=== PATIENT | female | born 1955 | race American Indian/Alaskan Native ===

== ENCOUNTER 2016-08-16 06:55 | Day surgery (SDC) | payer MEDICARE, OTHER ==
[2016-08-16] MEDS ORDERED: ECOTRIN PO ONE (08:00)
[2016-08-16] MEDS ORDERED: NACL 0.9% 500 ML 500 ML IV SCH (08:00)
[2016-08-16 08:25] LABS: Basophils % (Auto) 0.8 % (0.0-1.8); Eosinophils % (Auto) 4.9 % (0.0-4.3); Hematocrit 28.9 % (30.3-42.9); Hemoglobin 9.9 gm/dl (10.1-14.3); Mean Corpuscular HGB Conc 34 % (30-34); Platelet Count 349 K/mm3 (140-440); Red Blood Count 4.29 M/mm3 (3.65-5.03); Red Cell Distribution Width 17.2 % (13.2-15.2); White Blood Count 8.9 K/mm3 (4.5-11.0)
[2016-08-16 08:44] LABS: Mean Corpuscular Hemoglobin 23 pg (28-32); Mean Corpuscular Volume 67 fl (79-97)
[2016-08-16 08:47] LABS: INR 0.99 (0.87-1.13)
[2016-08-16 09:42] LABS: Anion Gap 18 mmol/L; BUN/Creatinine Ratio 18.18; Blood Urea Nitrogen 20 mg/dL (7-17); Calcium 8.6 mg/dL (8.4-10.2); Carbon Dioxide 25 mmol/L (22-30); Chloride 102.3 mmol/L (98-107); Glucose 107 mg/dL (65-100); Potassium 4.1 mmol/L (3.6-5.0); Sodium 141 mmol/L (137-145)
[2016-08-16] MEDS ORDERED: HEPARIN/NS 5000 UNIT/500ML(CATH LAB) 1,000 ML IR ONE (09:47)
[2016-08-16] MEDS ORDERED: CALAN ONE (09:47)
[2016-08-16] MEDS ORDERED: HEPARIN 10,000 UNITS/10 ML ONE (09:47)
[2016-08-16] MEDS ORDERED: NITROGLYCERIN SYRINGE 0 ML ONE (09:48)
[2016-08-16] MEDS ORDERED: BENADRYL ONE (11:08)
[2016-08-16] MEDS: VERSED ONE ×3 (11:26→12:00)
[2016-08-16] MEDS ORDERED: HEPARIN/NS 5000 UNIT/500ML(CATH LAB) 500 ML IR ONE (11:26)
[2016-08-16] MEDS: XYLOCAINE 2% INFILTRATI ONE ×2 (11:26→11:58)
[2016-08-16] MEDS: SUBLIMAZE ONE ×2 (11:56→12:02)
--- NOTE | 2016-08-16 12:45 | Discharge Summary ---
Short Stay Discharge Plan Activity: advance as tolerated Weight Bearing Status: Partial Weight Bearing Diet: low fat, low cholesterol, low salt Wound: keep clean and dry Special Instructions: no heavy lifting (3 days) Follow up with: YAW GUERRERO MD [Primary Care Provider] - 7 Days HAMIDA MARINO MD [Staff Physician] - 7 Days
[2016-08-16] MEDS ORDERED: CATAPRES ONE (13:00)
[2016-08-16] MEDS ORDERED: NACL 0.9% 1000 ML 1,000 ML IV SCH (13:00)
[2016-08-16] MEDS ORDERED: CATAPRES PO PRN (13:20)
[2016-08-16] MEDS ORDERED: NITROSTAT SL ONE (13:25)
[2016-08-16] MEDS: NITROSTAT SL PRN ×3 (13:30→13:40)
--- NOTE | 2016-08-16 13:43 | Operative Report ---
Operative Report Operative Report: Cardiac catheterization procedure report The patient's a 61-year-old woman who presented for an outpatient cardiac catheterization. During a routine outpatient visit, she was noted with a harsh , 3/6 systolic ejection murmur, following which an echocardiogram demonstrated a heavily calcified aortic valve with at least moderate aortic stenosis by echo criteria. She was referred for right and left heart catheterization. Procedures performed: Right left heart catheterization Coronary angiography Left ventricular angiography The patient was prepped and draped in a sterile fashion after informed consent. The right femoral artery and vein were entered using the Seldinger technique. A 6 [place] sheath was placed in the artery and an 8 [place] sheath in the vein. Right heart catheterization was performed with a [place]-Nate catheter, advanced to the pulmonary artery position. A right Yehuda catheter was advanced into the left ventricle. Cardiac output was measured using the thermodilution method. Left heart filling pressures were measured, pulmonary artery pressures were measured, following which the right heart catheter was withdrawn. The ventricle angiography was performed following which the right Yehuda catheter was pulled back across the aortic valve to record transaortic pressure gradient. Right conjunctiva was performed using the right Yehuda catheter, following which we exchanged for a #4 left Yehuda catheter for left carotid angiography. The catheters were removed, sheath removed and hemostasis achieved at the arterial site using an Angio-Seal device. Manual compression was following removal of the venous sheath. The patient was returned to the postprocedure unit in stable condition. There were no consultations. Findings: Hemodynamics The mean right atrial pressure was 15. Right ventricular pressure was 50/18. Pulmonary artery pressure was 52/35. The mean pulmonary artery wedge pressure was 20-25. Left ventricular end-diastolic pressure was 30-35. Cardiac output was 5.9 L/m. Ascending aortic pressure was 194 systolic. On pullback across the aortic valve , there was a peak to peak gradient of 25, mean gradient of 27. Aortic valve area calculated using the Gorlin equation was 1.11 cm. Coronary angiography There was mild diffuse coronary calcification chiefly involving the proximal and mid left anterior descending artery. The left main coronary artery was free of significant disease. The left anterior descending artery contained diffuse mild atherosclerosis of the proximal and midsegment, with an up to 20% luminal stenosis. The circumflex artery and its obtuse marginal branches were angiographically normal. The right coronary artery was dominant and contained mild luminal irregularities of the proximal segment. Left ventricle systolic function was at lower limits of normal, estimated ejection fraction 50-55%. Conclusion: Moderate to severe increased right and left heart filling pressures, moderate pulmonary hypertension. Mild to moderate aortic stenosis, with a mean gradient of 27, and an aortic valve area 1.1. Mild nonobstructive disease of the LAD, no significant obstructive coronary disease noted. Left ventricular size function is well preserved, ejection fraction 50-55%. Recommendation: Risk factor modification and medical therapy.
[2016-08-16] MEDS ORDERED: ULTRAM PO PRN (15:00)
[2016-08-16 16:47] VITALS: BP 150/75
== END 2016-08-16 17:05 | disposition home or self-care (01) ==
LOC: OPU 06:55
PROVIDERS: ATTEND Internal Medicine Cardiovascular Disease
DX: I25.10 Atherosclerotic heart disease of native coronary artery without angina pectoris (principal); I35.0 Nonrheumatic aortic (valve) stenosis; I27.2 Other secondary pulmonary hypertension; D64.9 Anemia, unspecified; M10.9 Gout, unspecified; J44.9 Chronic obstructive pulmonary disease, unspecified; F32.9 Major depressive disorder, single episode, unspecified; E11.9 Type 2 diabetes mellitus without complications; M19.90 Unspecified osteoarthritis, unspecified site; K21.9 Gastro-esophageal reflux disease without esophagitis; I11.0 Hypertensive heart disease with heart failure; I50.9 Heart failure, unspecified; E78.5 Hyperlipidemia, unspecified; Z86.19 Personal history of other infectious and parasitic diseases; Z90.49 Acquired absence of other specified parts of digestive tract; Z90.710 Acquired absence of both cervix and uterus; Z88.8 Allergy status to other drugs, medicaments and biological substances; Z88.1 Allergy status to other antibiotic agents; Z79.899 Other long term (current) drug therapy; Z79.82 Long term (current) use of aspirin; Z79.4 Long term (current) use of insulin; Z82.49 Family history of ischemic heart disease and other diseases of the circulatory system; Z83.3 Family history of diabetes mellitus; Z83.49 Family history of other endocrine, nutritional and metabolic diseases
CPT/HCPCS: 36415; 80048; 82962; 85025; 85610; 85730; 93005; 93010; 93460; C1760; C1769; C1894; J1200; J1644; J2250; J2930; J3010; J7040; Q9967

== ENCOUNTER 2021-06-29 06:45 | Day surgery (SDC) | payer MEDICARE, OTHER ==
[2021-06-29] MEDS ORDERED: ASPIRIN EC 325 MG TAB PO NR (07:17)
[2021-06-29 07:49] LABS: Basophils # (Auto) 0.1 K/mm3 (0.0-0.1); Basophils % (Auto) 0.6 % (0.0-1.8); Eosinophils # (Auto) 0.3 K/mm3 (0.0-0.4); Eosinophils % (Auto) 3.5 % (0.0-4.3); Hemoglobin 11.2 gm/dl (10.1-14.3); Lymphocytes # (Auto) 3.9 K/mm3 (1.2-5.4); Lymphocytes % (Auto) 46.1 % (13.4-35.0); Mean Corpuscular HGB Conc 34 % (30-34); Monocytes # (Auto) 0.5 K/mm3 (0.0-0.8); Monocytes % (Auto) 6.2 % (0.0-7.3); Platelet Count 401 K/mm3 (140-440); Red Blood Count 4.79 M/mm3 (3.65-5.03); Red Cell Distribution Width 17.1 % (13.2-15.2)
[2021-06-29 07:51] LABS: Mean Corpuscular Volume 69 fl (79-97)
[2021-06-29 07:58] LABS: INR 0.79 (0.87-1.13)
[2021-06-29 07:59] LABS: Partial Thromboplastin Time 27.2 Sec. (24.2-36.6)
[2021-06-29 08:04] LABS: BUN/Creatinine Ratio 14; Blood Urea Nitrogen 13 mg/dL (7-17); Calcium 9.2 mg/dL (8.4-10.2); Hemolysis Index 3
[2021-06-29] MEDS ORDERED: NITROGLYCERIN SYRINGE 3 ML ONE (08:11)
[2021-06-29] MEDS ORDERED: HEPARIN 10,000 UNITS/10 ML VIAL ONE (08:11)
[2021-06-29] MEDS ORDERED: HEPARIN/NS 5000 UNIT/500ML 1,000 ML IR ONE (08:11)
[2021-06-29] MEDS ORDERED: VERAPAMIL 5 MG/2 ML INJ ONE (08:11)
[2021-06-29] MEDS: SODIUM CHLORIDE 0.9% 500 ML 500 ML IV SCH ×2 (09:16→10:44)
[2021-06-29] MEDS ORDERED: diphenhydrAMINE 50 MG/ML VIAL ONE (10:29)
[2021-06-29] MEDS ORDERED: methylPREDNISolone Sod Succinate 125 MG/2 ML INJ ONE (10:30)
[2021-06-29] MEDS ORDERED: FAMOTIDINE 20 MG/2 ML INJ IV ONE ×2 (10:30→10:31)
[2021-06-29] MEDS ORDERED: HYDROCORTISONE SOD SUCC 100 MG/2 ML VIAL IV ONE (10:31)
[2021-06-29] MEDS ORDERED: diphenhydrAMINE 50 MG/ML VIAL IV NR (10:31)
[2021-06-29] MEDS ORDERED: fentaNYL 100 MCG/2 ML INJ ONE (10:37)
[2021-06-29] MEDS: MIDAZOLAM 2 MG/2 ML INJ ONE ×2 (10:43→11:10)
[2021-06-29] MEDS: LIDOCAINE (1%) 10 MG/1 ML VIAL 20 ML MDV ONE ×2 (10:44→11:14)
[2021-06-29] MEDS ORDERED: NITROGLYCERIN 0.4 MG TAB SUBL SL ONE (11:28)
[2021-06-29] MEDS ORDERED: LIDOCAINE (1%) 10 MG/1 ML VIAL 20 ML MDV ONE (11:33)
[2021-06-29] MEDS: hydrALAZINE 20 MG/1 ML INJ ONE ×2 (11:36→11:57)
[2021-06-29] MEDS ORDERED: methylPREDNISolone Sod Succinate 125 MG/2 ML INJ IV SCH (12:00)
[2021-06-29] MEDS ORDERED: ONDANSETRON 4 MG/2 ML INJ ONE (12:25)
[2021-06-29] MEDS ORDERED: SODIUM CHLORIDE 0.9% 1000 ML 1,000 ML ONE (12:26)
[2021-06-29 14:41] VITALS: BP 155/92
--- NOTE | 2021-06-30 13:55 | Electrocardiograph Report ---
[facility] Test Date: 2021-06-29 Test Time: 08:56:38 Pat Name: EVELIA HERNANDEZ Department: Room: Gender: F Protection Mgr: AYAZ : 1955 Requested By: HAMIDA MARINO Order Number: [id number] Reading MD: Milton Rivera Measurements Intervals [place] Rate: 67 P: 59 MS: 168 QRS: 6 QRSD: 85 T: -10 QT: 472 QTc: 491 Interpretive Statements Sinus rhythm Atrial premature complex Probable left atrial enlargement Left ventricular hypertrophy No previous ECG available for comparison Electronically Signed On 06-30-2021 13:54:53 EDT by Milton Rivera
--- NOTE | 2021-07-02 16:51 | Cardiac Catherization Report ---
DATE OF SERVICE: 06/29/2021 INDICATIONS: Aortic stenosis. PROCEDURE: The patient was brought to the lab in the fasting state. After consent was obtained and timeout obtained, the patient was given 2 mg of Versed for sedation. The right groin area, which had already been prepped and draped, Xylocaine was infiltrated for local anesthesia and the right femoral artery was cannulated using an 18-gauge needle and with introduction of the arterial sheath, which was then flushed with heparinized solution. The femoral vein was also canalized using an 18-gauge needle and the venous sheath was then inserted. Using a [place]-Nate catheter, this was introduced into the right atrium, right ventricle, and negotiated in the pulmonary arteries. Pulmonary arterial pressures as well as pulmonary wedge pressures were obtained. Right ventricular pressures and right atrial pressure was subsequently obtained. Pulmonary arterial saturation was obtained in the pulmonary arterial catheter position. The pigtail was then introduced into the aorta and aortic arterial saturations were obtained. Left ventriculogram was obtained subsequently, which imaged the patent right coronary artery. The left coronary artery was engaged and imaged in multiple views. FINDINGS: HEMODYNAMICS: Left opening aortic pressure 206/105. Left ventricular pressure was 235/15. Pulmonary capillary pressures were 20/21 with a mean of 16. PA pressure 43/15. Right ventricular pressure was 51/2, right atrial mean pressure was 9. There was no gradient across the aortic valve on pullback. Cardiac output was 3.8 L per minute. ANGIOGRAM: 1. Left main normal sized vessel without any stenosis. 2. Left anterior descending artery and diagonal branches are angiographically normal. 3. Left circumflex artery and obtuse marginal branches are angiographically normal. 4. Right coronary artery was imaged using aortogram and this shows the vessel to be widely patent and dominant. CONCLUSION: 1. Severe systemic arterial pressures with normal left heart hemodynamics. Moderate passive pulmonary hypertension and normal right heart hemodynamics. 2. Calcific aortic valve with no aortic stenosis. No gradient across the aortic valve. 3. Essentially angiographically normal coronary arteries. TID: [id number] RECEIPT: [id number] NARCISO/RAT/VIS
== END 2021-06-29 16:00 | disposition home or self-care (01) ==
LOC: CATHLABREC 06:45
PROVIDERS: ATTEND Internal Medicine Cardiovascular Disease
DX: I35.0 Nonrheumatic aortic (valve) stenosis (principal); R07.89 Other chest pain; I35.8 Other nonrheumatic aortic valve disorders; I70.0 Atherosclerosis of aorta; K21.9 Gastro-esophageal reflux disease without esophagitis; I11.0 Hypertensive heart disease with heart failure; I50.9 Heart failure, unspecified; E78.00 Pure hypercholesterolemia, unspecified; J44.9 Chronic obstructive pulmonary disease, unspecified; M19.90 Unspecified osteoarthritis, unspecified site; M10.9 Gout, unspecified; F32.9 Major depressive disorder, single episode, unspecified; F41.9 Anxiety disorder, unspecified; D64.9 Anemia, unspecified; Z88.8 Allergy status to other drugs, medicaments and biological substances; Z79.899 Other long term (current) drug therapy; Z88.5 Allergy status to narcotic agent; Z98.890 Other specified postprocedural states; Z98.41 Cataract extraction status, right eye; Z98.42 Cataract extraction status, left eye; Z90.49 Acquired absence of other specified parts of digestive tract; Z90.710 Acquired absence of both cervix and uterus; Z80.1 Family history of malignant neoplasm of trachea, bronchus and lung; Z80.3 Family history of malignant neoplasm of breast; Z86.73 Personal history of transient ischemic attack (TIA), and cerebral infarction without residual deficits; Z82.49 Family history of ischemic heart disease and other diseases of the circulatory system
CPT/HCPCS: 36415; 80048; 85025; 85610; 85730; 93005; 93460; C1894; J0360; J1200; J1644; J1815; J2250; J2405; J2930; J3010; J3490; J7030; J7040; 93567; 96374; 96375; Q9967